=== PATIENT | female | born 1990 | race American Indian/Alaskan Native ===

== ENCOUNTER 2017-12-28 14:11 | Day surgery (SDC) | payer BC ==
[2017-12-28] MEDS ORDERED: LEVAQUIN 500MG/100ML 500 MG/100 ML BAG IV SCH (14:41)
[2017-12-28] MEDS ORDERED: HEPARIN SUB-Q NR (14:45)
--- NOTE | 2017-12-28 15:04 | Procedure Note ---
Date of procedure: 12/28/17 Pre-op diagnosis: Chronic cholecystitis Post-op diagnosis: same Procedure: Laparoscopic cholecystectomy and operative cholangiogram Description of procedure: Pt was placed supine on the OR table. GETA was administered. Abdomen was prepped and draped. Proposed trocar sites were infiltrated with 8 ml of 0.5% Marcaine. A small, infraumbilical incision was made. Linea alba was incised and the peritoneal cavity carefully entered. A See port was inserted into the peritoneal cavity and pneumoperitoneum established. Anesthesia: GETA Surgeon: LOPEZ CHAVEZ Estimated blood loss: 50-100ml Pathology: list (Gallbladder) Specimen disposition: to lab Condition: stable Disposition: PACU
[2017-12-28] MEDS ORDERED: NACL BACTERIOSTATIC INFILTRATI ONE (15:16)
[2017-12-28] MEDS ORDERED: MARCAINE 0.5% 30 ML INFILTRATI ONE (15:35)
--- NOTE | 2017-12-28 16:43 | Anesthesia Day of Surgery ---
Anesthesia Day of Surgery - Day of Surgery Patient Examined: Yes Patient H&P Reviewed: Yes Patient is NPO: Yes Beta Blockers: No Cardiac Clearance: No Pulmonary Clearance: No
--- NOTE | 2017-12-28 16:45 | Anesthesia Consultation ---
Anesthesia Consult and Med Hx Date of service: 12/28/17 - Airway Anesthetic Teeth Evaluation: Good Intubation Access Assessment: Probably Good - Pulmonary Exam CTA: Yes - Cardiac Exam Cardiac Exam: RRR - Pre-Operative Health Status ASA Pre-Surgery Classification: ASA2 Proposed Anesthetic Plan: General - Pulmonary Hx Asthma: Yes - Hematic Hx Anemia: Yes
[2017-12-28] MEDS ORDERED: NACL 0.9% 1000 ML 1,000 ML IV SCH (17:00)
[2017-12-28] MEDS ORDERED: ZEMURON IV ONE (17:55)
[2017-12-28] MEDS ORDERED: XYLOCAINE MPF 2% ONE (17:55)
[2017-12-28] MEDS ORDERED: DIPRIVAN 10 MG/ML IV ONE (17:56)
[2017-12-28] MEDS ORDERED: SUBLIMAZE ONE (17:56)
[2017-12-28] MEDS ORDERED: NEO SYNEPHRINE/NS Syringe(OR USE) IV ONE (19:09)
[2017-12-28] MEDS ORDERED: ePHEDrine SULFATE ONE (19:26)
[2017-12-28] MEDS ORDERED: NEOSTIGMINE ONE (19:46)
[2017-12-28] MEDS ORDERED: ROBINUL ONE (19:46)
[2017-12-28] MEDS ORDERED: DECADRON ONE (19:46)
[2017-12-28] MEDS ORDERED: DILAUDID ONE (19:56)
[2017-12-28] MEDS ORDERED: NACL 0.9% 1000 ML 1,000 ML ONE (19:59)
[2017-12-28] MEDS: DILAUDID IV PRN ×2 (20:28→21:10)
--- NOTE | 2017-12-28 20:39 | Post Anesthesia Evaluation ---
- Post Anesthesia Evaluation Patient Participated: Yes Airway Patent: Yes Stable Respiratory Function: Yes Nausea/Vomiting: No Temp > 96.8F: Yes Pain Manageable: Yes Adequeate Hydration: Yes Anesthesia Complications: No Block Receding Appropriately: No Patient on Ventilator: No
[2017-12-28] MEDS ORDERED: ZOFRAN ONE (20:47)
[2017-12-28] MEDS ORDERED: ZOFRAN IM ONE (20:52)
[2017-12-28 22:41] VITALS: BP 110/67
--- NOTE | 2017-12-29 07:59 | Fluoroscopy Report ---
FLUOROSCOPY CHOLANGIOGRAM OPERATIVE History: Cholecystitis. Findings: Fluoroscopy was provided by radiology during intraoperative cholangiogram by the surgeon. 3 fluoroscopic images are presented which demonstrate contrast agent within the biliary tree and duodenum. Cholecystectomy has been performed. No filling defects, abnormal dilatation or extravasation of contrast is appreciated on the given images. Impression: No filling defect or extravasation is identified. Please correlate with the procedural report as needed.
== END 2017-12-28 22:30 | disposition home or self-care (01) ==
LOC: OR 14:11
PROVIDERS: ATTEND Surgery
DX: K81.1 Chronic cholecystitis (principal); J45.909 Unspecified asthma, uncomplicated; Z98.51 Tubal ligation status; Z88.0 Allergy status to penicillin
CPT/HCPCS: 47563; 74300; 81025; 88304; J1100; J1170; J1644; J1956; J2370; J2405; J2704; J2710; J3010; J7030; Q9967